=== PATIENT | female | born 1975 | race Hispanic/Latino ===

== ENCOUNTER 2019-02-25 16:10 | Emergency (ER) | payer SELFPAY ==
--- NOTE | 2019-02-25 18:33 | ER ---
Nurse's Notes [facility] Name: Donna Rico Age: 43 yrs Sex: Female : 1975 Arrival Date: 02/25/2019 Time: 16:11 Bed 5 Private MD: Diagnosis: Lip laceration Presentation: 02/25 16:13 Presenting complaint: Presenting complaint: Patient states: slipped and fell today on a sv wet floor and has a upper lip laceration from the counter. Care prior to arrival: None. 16:13 Method Of Arrival: Ambulatory sv 16:13 Acuity: VICTORINA 3 sv 16:14 Transition of care: patient was not received from another setting of care. Onset of sv symptoms was February 25, 2019. 16:16 Mechanism of Injury: Fall from standing position. sv 18:48 Risk Assessment: Do you want to hurt yourself or someone else? Patient reports no ph desire to harm self or others. Initial Sepsis Screen: Does the patient meet any 2 criteria? No. Patient's initial sepsis screen is negative. Does the patient have a suspected source of infection? No. Patient's initial sepsis screen is negative. Trauma Activation: Not Applicable Physician: ED Physician; Name: ; Notified At: ; Arrived At: Physician: General Surgeon; Name: ; Notified At: ; Arrived At: Physician: Radiology; Name: ; Notified At: ; Arrived At: Physician: Respiratory; Name: ; Notified At: ; Arrived At: Physician: Lab; Name: ; Notified At: ; Arrived At: Historical: - Allergies: 16:26 No Known Allergies; sv - PMHx: 16:26 None; sv - PSHx: 16:26 breast augmentation; sv - Immunization history:: Adult Immunizations unknown. - Social history:: Smoking status: Patient/guardian denies using tobacco. - Ebola Screening: : No symptoms or risks identified at this time. Screenin:48 Abuse screen: Denies threats or abuse. Denies injuries from another. Nutritional ph screening: No deficits noted. Tuberculosis screening: No symptoms or risk factors identified. Fall Risk None identified. Assessment: 17:00 General: Appears in no apparent distress. comfortable, slender, well groomed, Behavior ph is calm, cooperative, appropriate for age. Pain: Complains of pain in mouth. Neuro: Level of Consciousness is awake, alert, obeys commands, Oriented to person, place, time, situation, Denies dizziness, headache. Cardiovascular: Capillary refill < 3 seconds in bilateral fingers. Respiratory: Airway is patent Respiratory effort is even, unlabored. Derm: Skin is healthy with good turgor, Skin is pink, warm \T\ dry. Musculoskeletal: Circulation, motion, and sensation intact. Range of motion: intact in all extremities. Injury Description: Laceration sustained to upper lip. Vital Signs: 16:14 BP 182 / 96; Pulse 112; Resp 20; Temp 99.2; Pulse Ox 99% ; Weight 61.69 kg; Height 4 sv ft. 9 in. (146 cm); 18:49 BP 168 / 78; Pulse 87; Resp 18; Temp 98.0; Pulse Ox 99% on R/A; ph 16:14 Body Mass Index 28.94 (61.69 kg, 146 cm) sv ED Course: 16:11 Patient arrived in ED. am2 16:14 Triage completed. sv 16:15 Arm band placed on. sv 16:31 Megan Thomas RN is Primary Nurse. ph 16:32 Mg Lopez PA is PHCP. [facility] 16:32 Tashi Solomon MD is Attending Physician. [facility] 18:04 Assist provider with laceration repair Patient tolerated well. BURKINAN/FRISIAN mh5 INTERPRETATION ALSO WITH LACERATION REPAIR . 18:32 Bahman Stewart MD is Referral Physician. [facility] 18:48 Patient has correct armband on for positive identification. Call light in reach. Side ph rails up X2. 18:49 Patient did not have IV access during this emergency room visit. ph Administered Medications: 17:00 Drug: Marcaine (0.5 %) 10 ml Volume: 10 ml; Route: Infiltration; ph 18:49 Follow up: Response: No adverse reaction ph Outcome: 18:33 Discharge ordered by . [facility] 18:48 Discharged to home ambulatory, with family. ph 18:48 Condition: good 18:48 Discharge instructions given to patient, Instructed on discharge instructions, follow up and referral plans. medication usage, Demonstrated understanding of instructions, follow-up care, medications, Prescriptions given X 1. 18:50 Patient left the ED. ph Signatures: Becky Aldrich RN RN Mg Lopez PA PA jmm Hall, Patricia, RN RN ph Esther Russ 5 Leslie Aceves 2 Corrections: (The following items were deleted from the chart) 16:15 16:13 Acuity: VICTORINA 4 [facility] 16 16:15 Trauma event details: Injury occurred in the [facility] 16:13 Presenting complaint: [facility] 16:14 BP 182 / 96; Pulse 112bpm; Resp 20bpm; Pulse Ox 99%; Temp 99.2F; [facility]
--- NOTE | 2019-02-25 18:34 | EDPHYS ---
Physician Documentation [facility] Name: Donna Rico Age: 43 yrs Sex: Female : 1975 Arrival Date: 02/25/2019 Time: 16:11 Bed 5 Private MD: ED Physician Tashi Solomon HPI: 02/25 16:33 This 43 yrs old Female presents to ER via Ambulatory with complaints of Lip jmm Injury. 16:33 The patient presents with laceration. Onset: The symptoms/episode began/occurred jmm acutely, just prior to arrival. Duration: The symptoms are continuous. Modifying factors: The symptoms are alleviated by nothing, the symptoms are aggravated by nothing. This is a 43 year old female with no chronic medical conditions that presents to the ED with complaints of laceration to her upper lip. Patient slipped in the kitchen, hitting her face against a granite counter top. Denies LOC, denies vomiting. . Historical: - Allergies: 16:26 No Known Allergies; sv - PMHx: 16:26 None; sv - PSHx: 16:26 breast augmentation; sv - Immunization history:: Adult Immunizations unknown. - Social history:: Smoking status: Patient/guardian denies using tobacco. - Ebola Screening: : No symptoms or risks identified at this time. ROS: 16:33 Constitutional: Negative for fever, chills, and weight loss, Cardiovascular: Negative jmm for chest pain, palpitations, and edema, Respiratory: Negative for shortness of breath, cough, wheezing, and pleuritic chest pain. 16:33 Skin: Positive for laceration(s). 16:33 Neuro: Negative for loss of consciousness. 16:33 All other systems are negative. Exam: 16:33 Constitutional: This is a well developed, well nourished patient who is awake, alert, jmm and in no acute distress. 16:33 Eyes: EOMI, no conjunctival erythema appreciated Neck: Trachea midline, Supple Chest/axilla: Normal chest wall appearance and motion. Cardiovascular: Regular rate and rhythm. No edema appreciated Respiratory: Normal respirations, no respiratory distress appreciated Abdomen/GI: Non distended, soft Back: Normal ROM 16:33 Head/face: laceration noted to the left upper lip, crosses the alli border. . 16:33 Skin: laceration noted to the upper lip. 16:33 Neuro: Orientation: is normal, Mentation: is normal, Memory: is normal. 16:33 Psych: Behavior/mood is pleasant, cooperative. Vital Signs: 16:14 BP 182 / 96; Pulse 112; Resp 20; Temp 99.2; Pulse Ox 99% ; Weight 61.69 kg; Height 4 sv ft. 9 in. (146 cm); 18:49 BP 168 / 78; Pulse 87; Resp 18; Temp 98.0; Pulse Ox 99% on R/A; ph 16:14 Body Mass Index 28.94 (61.69 kg, 146 cm) sv Laceration: 18:30 Wound Repair of 1cm ( 0.4in ) subcutaneous laceration to upper alli border. [facility] Distal neuro/vascular/tendon intact. Anesthesia: Local anesthetic administered with 2 mls of 0.5% marcaine. Wound prep: Simple cleansing with betadine by me. Skin closed with 2 6-0 Prolene using simple sutures and sterile technique. Patient tolerated well. 18:30 Wound Repair of 3cm ( 1.2in ) subcutaneous laceration to upper lip. Distal jmm neuro/vascular/tendon intact. Anesthesia: Local anesthetic administered with 3 mls of 0.5% marcaine. Wound prep: Simple cleansing with betadine by me. Skin closed with 7 5-0 chromic using simple sutures and sterile technique. Patient tolerated well. MDM: 16:33 Patient medically screened. [facility] 18:32 Data reviewed: vital signs, nurses notes. Counseling: I had a detailed discussion with [facility] the patient and/or guardian regarding: the historical points, exam findings, and any diagnostic results supporting the discharge/admit diagnosis, the need for outpatient follow up, to return to the emergency department if symptoms worsen or persist or if there are any questions or concerns that arise at home. Administered Medications: 17:00 Drug: Marcaine (0.5 %) 10 ml Volume: 10 ml; Route: Infiltration; ph 18:49 Follow up: Response: No adverse reaction ph Disposition: 02/26 08:07 Co-signature as Attending Physician, Tashi Solomon MD I agree with the assessment and [facility] plan of care. Disposition: 02/25/19 18:33 Discharged to Home. Impression: Lip laceration. - Condition is Stable. - Discharge Instructions: Facial Laceration. - Prescriptions for Ultracet 37.5- 325 mg Oral Tablet - take 1 tablet by ORAL route every 6 hours - for up to 5 days; do not exceed 8 tablets per day.; 12 tablet. - Medication Reconciliation Form, Thank You Letter, Antibiotic Education, Prescription Opioid Use form. - Follow up: Bahman Stewart MD; When: 5 - 6 days; Reason: Recheck today's complaints, Continuance of care, Staple/Suture removal, Re-evaluation by your physician. Signatures: Becky Aldrich RN RN Tashi Parsons MD MD cha Mickail, Joel, PA PA jmm Hall, Patricia, RN RN ph Corrections: (The following items were deleted from the chart) 02/25 18:50 18:33 02/25/2019 18:33 Discharged to Home. Impression: Lip laceration. Condition is ph Stable. Forms are Medication Reconciliation Form, Thank You Letter, Antibiotic Education, Prescription Opioid Use. Follow up: Bahman Stewart; When: 5 - 6 days; Reason: Recheck today's complaints, Continuance of care, Staple/Suture removal, Re-evaluation by your physician. [facility]
[2019-02-25 18:54] VITALS: O2SAT 99
[2019-02-25 18:56] VITALS: BP 168/78; TEMP 98
== END 2019-02-25 18:50 | disposition home or self-care (01) ==
LOC: ER 16:10
PROC: 0CQ0XZZ Repair Upper Lip, External Approach (ICD-10-PCS; principal; 2019-02-25)
DX: S01.511A Laceration without foreign body of lip, initial encounter (principal); W01.198A Fall on same level from slipping, tripping and stumbling with subsequent striking against other object, initial encounter; Y93.9 Activity, unspecified; Y92.9 Unspecified place or not applicable; Z98.82 Breast implant status
CPT/HCPCS: 99283